=== PATIENT | female | born 1940 | race Caucasian/White ===

== ENCOUNTER 2017-12-03 09:58 | Outpatient (CLI) | payer MEDICARE | END 2017-12-03 09:59 | disposition home or self-care (01) | LOC: BICMAMMO 09:58 | PROVIDERS: ATTEND Internal Medicine Hematology & Oncology | DX: Z12.31 Encounter for screening mammogram for malignant neoplasm of breast (principal); Z13.820 Encounter for screening for osteoporosis; M81.0 Age-related osteoporosis without current pathological fracture; M25.78 Osteophyte, vertebrae; Z80.3 Family history of malignant neoplasm of breast; Z85.3 Personal history of malignant neoplasm of breast | CPT/HCPCS: 77063; 77067; 77080 ==